=== PATIENT | female | born 1985 | race Caucasian/White ===

== ENCOUNTER 2023-11-25 09:27 | Emergency (ER) | payer SELFPAY ==
--- NOTE | 2023-11-25 09:43 | ED.DENTAL ---
HPI - Dental/Oral General Chief complaint: Dental/Oral Stated complaint: Rt Mouth Pain Time Seen by Provider: 11/25/23 09:42 Source: patient Mode of arrival: ambulatory Limitations: no limitations History of Present Illness HPI Narrative: Patient is a 37-year-old female that presents with 3 days of right upper dental pain. Patient states she has not been to a dentist since high school. Reports injury to tooth a year ago and has only worsened. Patient denies taking any Tylenol or ibuprofen for pain. Did take Flexeril this morning. Patient denies any better taste in mouth or inability to eat. Patient also has history of Lyme disease and mono that she is currently following with PCP. Patient states her heart rate is always elevated. Related Data Allergies Allergy/AdvReac Type Severity Reaction Status Date / Time No Known Allergies Allergy Verified 11/25/23 09:50 Review of Systems Review of Systems: All systems reviewed & are unremarkable except as noted in HPI and below Constitutional: Constitutional: Denies body ache(s), Denies fever(s), Denies headache(s), Denies malaise and Denies weakness Eyes: Eyes: Denies loss of vision ENT: Denies otalgia, Reports facial pain (jaw), Denies headache(s), Denies nasal discharge, Denies sinus pain and Denies sore throat Cardiovascular: Cardiovascular: Denies chest pain, Denies irregular heart rhythm and Denies dyspnea Respiratory: Respiratory: Denies dyspnea Gastrointestinal: Gastrointestinal: Denies abdominal pain, Denies melena, Denies hematochezia, Denies diarrhea, Denies nausea and Denies vomiting Musculoskeletal: Musculoskeletal: Denies back pain, Denies myalgias and Denies arthralgias Integumentary/Breasts: Skin/Breast: Denies pruritus and Denies rash Neurologic: Denies headache(s), Denies loss of vision and Denies weakness Psychiatric: Psychiatric: Reports no additional psychiatric complaints PMFSH Comments At time of signature, agree with nursing past medical, surgical, social and family history. There is no relevant family history pertinent to the presenting complaint. Exam Const: General: cooperative, healthy appearing, comfortable, no acute distress and well nourished Nutritional Appearance: well nourished Orientation/consciousness: patient oriented x3 Limitations: no limitations HENMT: Head: normal to inspection, normocephalic and atraumatic Ears: hearing grossly normal bilaterally, external ears normal, TM's normal bilaterally and mastoids normal bilaterally Face/Nose/Sinus: Normal external nose present, normal facial exam and face symmetric Face and sinus: normal facial exam and face symmetric Mouth: Yes Normal oral and palatal mucosa present, Yes lip normal, Yes tongue normal, Yes Normal salivary glands and ducts present and Yes moist mucous membranes Teeth and gingiva: caries and poor dentition Teeth image: 1. deterioration to both 1/2 teeth. No drainage noted. Surrounding erythema and swelling to base of teeth Eyes: General: appearance normal, both eyes and all related structures Alignment and Position: alignment normal and position normal Periorbital: periorbital findings normal Eyelids: eyelids normal Pupils: Equal, round and reactive pupils present EOM: EOMs intact bilaterally Neck: Neck: normal visual inspection, full ROM, no lymphadenopathy and supple Chest: Chest palpation & inspection: normal inspection of the chest Resp: Effort & Inspection: normal respiratory effort and able to speak in complete sentences Auscultation: clear to auscultation bilaterally Cardio: Rate: regular rate Rhythm: regular rhythm Heart sounds: S1 normal heart sound present and S2 normal heart sound present GI: Inspection: normal to inspection Skin: General skin exam: normal color and no rashes or lesions noted Neuro: General: patient oriented x3 and moves all extremities Cranial nerves: Yes Equal, round and reactive pupils present Speech: normal speech Ga
[2023-11-25 09:51] VITALS: BP 179/95; PULSE 136; RESP 16; TEMP 37; O2SAT 100
== END 2023-11-25 10:10 | disposition home or self-care (01) ==
PROVIDERS: Emergency Provider Nurse Practitioner Family
DX: K04.7 Periapical abscess without sinus (principal); Z86.16 Personal history of COVID-19
CPT/HCPCS: 99203; G0463

== ENCOUNTER 2024-10-29 11:22 | Observation (INO) | payer MEDICAID, SELFPAY ==
[2024-10-29] VITALS (8 sets, daily range): BP systolic 100–147; BP diastolic 70–94; PULSE 101–112; RESP 12–24; TEMP 36.4; O2SAT 94–100; BMI 31.7
--- NOTE | ~2024-10-29 | XR_ITS ---
CHEST RADIOGRAPH CLINICAL HISTORY: Altered mental status . COMPARISON: None available TECHNIQUE: Single portable view of the chest. FINDINGS The cardiomediastinal silhouette is unremarkable. Increased interstitial markings are identified within the left hemithorax, sparing the right, finding s suggesting mild asymmetric pulmonary vascular congestion, versus early infiltrate. IMPRESSION: Asymmetric pulmonary vascular congestion involving primarily the left hemithorax, without focal infil trate. Reviewed, dictated and finalized at location A. ON TIPPER IMPRESSION: Asymmetric pulmonary vascular congestion involving primarily the left hemithora x, without focal infiltrate.
--- NOTE | ~2024-10-29 | CT_ITS ---
EXAMINATION: CT brain wo con DATE: 10/29/2024 13:06 INDICATION: Altered mental status. TECHNIQUE: Computed tomography (CT) of the head was performed without intravenous contrast. The mA wa s adjusted according to patient size. Iterative reconstruction technique was employed. The dose-lengt h product was 605.33 mGy-cm. COMPARISON: None FINDINGS: There is no intracranial hemorrhage, acute infarction, or abnormal intracranial mass lesion . The ventricles are normal in size. The paranasal sinuses are clear. The orbits are normal. The mast oid air cells are normal. IMPRESSION: 1. Normal brain. Reviewed, dictated and finalized at location A. INTMENT SCHEDULER IMPRESSION: 1. Normal brain.
--- NOTE | 2024-10-29 11:38 | ECG_ITS ---
Test Date: 2024-10-29 11:33:36 Measurements Intervals [place] Rate: 104 P: 48 NV: 160 QRS: 21 QRSD: 85 T: 95 QT: 349 QTc: 460 Interpretive Statements SINUS TACHYCARDIA NONSPECIFIC ST & T-WAVE ABNORMALITY- ANTEROLAT/HIGH LAT LEADS BORDERLINE ECG No previous ECG available for comparison Electronically Signed On 10-29-2024 11:53:42 [employer] by Brian Coleman D.O.
--- NOTE | 2024-10-29 11:57 | PC.NURSE ---
call to [place] poison control 4hr peak only supportive care required
[2024-10-29 12:13] LABS: BEDSIDEPREGUCG Negative (Negative)
[2024-10-29 12:19] LABS: Add Urine Microscopic? YES; Appearance Urine Clear (Clear); Bacteria Urine None Seen /hpf; Bilirubin Urine Negative (Negative); Blood Urine Negative (Negative); Color Urine Dark Yellow (Yellow); Glucose Urine UA Negative (Negative); Ketones Urine Negative (Negative); Leukocyte Esterase Ur Negative LEU/UL (Negative); Nitrate Urine Negative (Negative); Non Pathogenic Casts 0-2; Protein Urine Trace mg/dL (Negative); RBC Urine 0-2 /hpf (0-2); Specific Grav Ur 1.026 (1.001-1.035); Squamous Epithelial Cell Urine None Seen /hpf (Few); Urobilinogen Urine 0.2 mg/dL (<2.0); WBC Urine 0-5 /hpf (0-3); pH Urine 7.5 (5.0-9.0)
[2024-10-29 12:21] LABS: Acetaminophen < 10 ug/mL (10-30); Ethanol < 10 mg/dL (<10); Salicylate < 1.0 mg/dL (2-20)
[2024-10-29 12:22] LABS: Basophils Percent Auto 0.3 % (0.2-1.2); Hematocrit 38.6 % (37.0-47.0); Hemoglobin 12.5 g/dL (12.0-15.0); Immature Granulocyte Absolute 0.04 K/mm3 (0.00-0.031); Immature Granulocyte Percent A 0.4 % (0-0.5); Lymphocytes Absolute Auto 1.47 K/mm3 (0.9-3.2); Lymphocytes Percent Auto 13.2 % (18.3-44.2); Mean Corpuscular HGB Conc 32.4 g/dl (32-36); Mean Corpuscular Hemoglobin 27.7 pg (26-34); Mean Corpuscular Volume 85.6 fl (80-100); Mean Platelet Volume 9.4 fl (7.4-10.4); Monocytes Absolute Auto 0.4 K/mm3 (0.1-0.6); Monocytes Percent Auto 3.8 % (2.6-8.5); Neutrophils Absolute Auto 9.1 K/mm3 (1.3-6.7); Neutrophils Percent Auto 82.3 % (45.5-73.1); Platelet Count Result 475 k/mm3 (150-375); Red Blood Count 4.51 M/mm3 (4.2-5.4); White Blood Count 11.1 K/mm3 (4.5-10.0)
--- NOTE | 2024-10-29 12:37 | ED_ITS ---
HPI - Altered Mental Status General Chief Complaint: Altered Mental Status Stated Complaint: ams Time Seen by Provider: 10/29/24 11:38 History of Present Illness HPI narrative: Patient reportedly took a dose of horse anti parasitic last night, she has been obsessed about her health and different ways to treated, has tried a lot of holistic treatments including vitamins. Related Data Allergies Allergy/AdvReac Type Severity Reaction Status Date / Time No Known Allergies Allergy Verified 11/25/23 09:50 Review of Systems 2 Review of Systems: ROS unobtainable: Yes unobtainable due to mental status Exam 2 Narrative: EXAMINATION OF ORGAN SYSTEMS/BODY AREAS: Constitutional: Vital signs per nursing GENERAL:[No acute distress, non-toxic appearing.] Lying comfortably in the bed. HEAD: Normal with no signs of head trauma. EYES: PERRL, conjunctiva normal ENT: Hearing grossly intact LUNGS: Slightly tachycardic ABD: [Soft], [nontender to palpation] EXT: No obvious deformity SKIN: [No rashes or lesions.] NEURO: [Eyes closed, but winces and draws away to painful stimulus all 4 extremities.] Course Vital Signs Vital signs: Vital Signs Temperature 97.6 F 10/29/24 11:21 Pulse Rate 105 H 10/29/24 11:21 Respiratory Rate 20 10/29/24 11:21 Pulse Oximetry 96 10/29/24 11:21 Oxygen Delivery Room Air 10/29/24 11:21 Temperature 97.6 F 10/29/24 11:21 Pulse Rate 105 H 10/29/24 12:08 Respiratory Rate 13 10/29/24 12:04 Blood Pressure 124/94 H 10/29/24 12:04 Pulse Oximetry 97 10/29/24 12:04 Oxygen Delivery Room Air 10/29/24 12:04 MDM - Altered Mental Status MDM Narrative Medical decision making narrative: Patient reportedly took a dose of horse anti parasitic last night, she has been obsessed about her health and different ways to treated, has tried a lot of holistic treatments including vitamins. Per parents, asthma going for years, they have had her see multiple neurologists who say that there is nothing wrong with her neurologically, she has notebook with her that is filled with pain and holistic treatments and other medications that she apparently has been taking which include doxycycline, ivermectin, vitamins. Poison Control Center called, she is medically cleared at this time. At this point I do feel she would strongly benefit from a neuro and psych consult. Discussed with neurologist who recommends EEG if she does not come back to baseline, discussed with hospitalist for admission. I will also give a small dose of Ativan in case this is catatonia. Lab Data 10/29/24 11:57 10/29/24 11:57 Labs: Lab Results 10/29/24 10/29/24 Range/Units 11:57 12:04 WBC 11.1 H (4.5-10.0) K/mm3 RBC 4.51 (4.2-5.4) M/mm3 Hgb 12.5 (12.0-15.0) g/dL Hct 38.6 (37.0-47.0) % MCV 85.6 (80-100) fl MCH 27.7 (26-34) pg MCHC 32.4 (32-36) g/dl RDW 13.0 (11.5-14.5) % Plt Count 475 H (150-375) k/mm3 MPV 9.4 (7.4-10.4) fl Immature Gran % (Auto) 0.4 (0-0.5) % Neut % (Auto) 82.3 H (45.5-73.1) % Lymph % (Auto) 13.2 L (18.3-44.2) % Burt % (Auto) 3.8 (2.6-8.5) % Eos % (Auto) 0.0 (0-4.4) % Baso % (Auto) 0.3 (0.2-1.2) % Lymph # (Auto) 1.47 (0.9-3.2) K/mm3 Burt # (Auto) 0.4 (0.1-0.6) K/mm3 Eos # (Auto) 0.0 (0-0.3) K/mm3 Baso # (Auto) 0.0 (0.0-0.1) K/mm3 Abs Immat Gran (auto) 0.04 H (0.00-0.031) K/mm3 Absolute Neuts (auto) 9.1 H (1.3-6.7) K/mm3 Absolute Nucleated RBC 0.000 (0.0-0.012) K/mm3 Nucleated RBC % 0.0 (0.0-0.2) % Sodium 136 L (137-145) mmol/L Potassium 4.0 (3.4-5.0) mmol/L Chloride 104 (98-107) mmol/L Carbon Dioxide 21 L (22-30) mmol/L Anion Gap 11 (4-12) mmol/L BUN 13 (7-17) mg/dL Creatinine 0.47 L (0.7-1.0) mg/dL Estim Creat Clear Calc 170 ml/min Estimated GFR > 60 (59 - ) Glucose 131 H (65-110) mg/dL Calcium 8.8 (8.4-10.2) mg/dL Total Bilirubin 0.5 (0.2-1.3) mg/dL AST 30 (14-36) U/L ALT 39 H (6-35) U/L Alkaline Phosphatase 95 (38-126) U/L Total Protein 7.0 (6.3-8.2) g/dL Albumin 4.1 (3.5-5.1) g/dL TSH 0.928 (0.465-4.680) uIU/mL Urine Color Dark yellow (Yellow) Urine Appearance Clear (Clear) Urine pH 7.5 (5.0-9.0) Ur Specific [place] 1.026 (1.001-1.035) Urine Protein Trace (Negative) mg/dL Urine Glucose (UA) Negative (Negative) mg/dL Urine Ketones Negative (Negative) mg/dL Ur Blood (Man) Negative (Negative) Urine Nitrate Negative (Negative) Urine Bilirubin Negative (Negative) Urine Urobilinogen 0.2 (<2.0) mg/dL Leukocyte Esterase Rfl Negative (Negative) BRANDON/UL Urine RBC 0-2 (0-2) /hpf Urine WBC 0-5 (0-3) /hpf Ur Squamous Epith Cells None seen (Few) /hpf Urine Bacteria None seen /hpf Urine Casts 0-2 POC Urine HCG, Qual Negative (Negative) Salicylates < 1.0 L (2-20) mg/dL Acetaminophen < 10 L (10-30) ug/mL Ethyl Alcohol < 10 (<10) mg/dL Discharge Plan Discharge Clinical Impression: Altered mental status, Anxiety about health Patient Disposition: Still a Patient Condition: Stable Patient Language: Macedonian Prescriptions: No Action amoxicillin-pot clavulanate 875-125 mg tablet 1 tablet PO Q12H 14 Days Qty: 28 0RF Follow-up/Referrals: Yanet Starks [Other]
[2024-10-29 12:44] LABS: Alanine Aminotransferase 39 U/L (6-35); Albumin Level 4.1 g/dL (3.5-5.1); Alkaline Phosphatase 95 U/L (38-126); Anion Gap 11 mmol/L (4-12); Aspartate Amino Transferase 30 U/L (14-36); Bilirubin,Total 0.5 mg/dL (0.2-1.3); Blood Urea Nitrogen 13 mg/dL (7-17); Calcium 8.8 mg/dL (8.4-10.2); Carbon Dioxide 21 mmol/L (22-30); Chloride 104 mmol/L (98-107); Estimated CRCL calculation 170 ml/min; Estimated Glomerular Filt Rate > 60; Glucose 131 mg/dL (65-110); Sodium 136 mmol/L (137-145)
--- OUTSIDE RECORDS SUMMARY | 2024-10-29 12:53 | XMS_ITS | Clinical Summary ---
[facility] [place] Address [address] [place] [address] Phone Care Team Providers Care Counter Checker Name Role Phone Unavailable Primary Care Provider Unavailabl e Allergies Active Allergy Reactions Criticality Noted Date Comments Cefaclor Unknown 09/07/2009 Ekfyvlwnz-Quu-Lx-Acetaminophen Unknown 09/07 Medications B-complex with vitamin C (SUPER B COMPLEX-VITAMIN C ORAL) Active BENFOTIAMINE ORAL Ac tive MAGNESIUM GLYCINATE ORAL Activ e SULBUTIAMINE ORAL Ac tive TAURINE ORAL Active THEANINE ORAL Active Thiamine HCl, Bulk, Powder Active Active Problems Patient Care Coordination No te Formatting of this note migh t be different from the original. 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 Mood disorder Paranoid schizophrenia Depression Encounters Date Type Department Care Team Description 10/09/2024 External Device Data [facility] ABSTRACTION Provider, Abstract 10/09/2024 External Device Data [facility] ABSTRACTION Provider, Abstract from Last 3 Months Family History Medical History Relation Name Comments Breast Cancer Maternal Aunt age 40's Colon Cancer Maternal Grandfather Breast Cancer Maternal Grandmother age 80 's Breast Cancer Other great grand mo ther age unknown Lung Cancer Paternal Grandfather Relation Name Status Comments Maternal Aunt Maternal Grandfather Maternal Grandmother Other Paternal Grandfather Social History Tobacco Use Types Packs/Day Years Used Date Smoking Tobacco: Never Tobacco Cessation:Counseling Given: Not Answered Alcohol Use Standard Drinks/Week Comments Not Currently 0 (1 standard drink = 0.6 oz pur e alcohol) rare Comments No Sex and Gender Information Value Date Recorded Sex Assigned at Not on file Legal 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 Gender Identity Not on file Sexual Orientation Not on file Last Filed Vital Signs Vital Sign Reading Time Taken Comments Blood Pressure 153/102 04/26/2024 4:11 PM CDT Pulse 133 04/26/2024 2:55 PM CDT Temperature 36.6 C (97.8 F) 04/26/2024 2:55 PM CDT Respiratory Rate 16 04/26/2024 2:55 PM CDT Oxygen Saturation 99% 04/26/2024 2:55 PM CDT Inhaled Oxygen Concentration - - Weight 83.9 kg (185 lb) 04/26/2024 2:55 PM CDT Height 172.7 cm (5' 8 ) 04/26/2024 2:55 PM CDT Body Mass Index 28.13 04/26/2024 2:55 PM CDT Plan of Treatment Health Maintenance Due Date Last Done Comments Pre-Diabetes and Diabetes Screening 1987 DTAP/TDAP/TD VACCINES (1 - Tdap) 12/08/2006 HEPATITIS B VACCINES (1 of 3 - 19+ 3-dose series) 12/08/2006 Preventative Visit-Managed Medicaid 12/08/2006 CERVICAL CANCER SCREENING 12/08/2017 INFLUENZA VACCINE (#1) 2024 HPV VACCINES Aged Out No longer eligi ble based on patient's age to complete this topic [place] [id number]
[2024-10-29 13:15] LABS: Thyroid Stimulating Hormone 0.928 uIU/mL (0.465-4.680)
--- NOTE | 2024-10-29 14:07 | PC.NURSE ---
spoke to poison control at this time for an update on the pt. they updated this RN that there is no treatment, all interventions are based on supportive care.
[2024-10-29] MEDS: LORazepam INJ (*CRX) 2 MG/ML VIAL 1 MG IV PUSH (14:19)
[2024-10-29 14:32] LABS: Amphetamine Screen Urine Negative (Negative); Barbiturate Screen Urine Negative (Negative); Benzodiazepines Screen Urine Negative (Negative); Cannabinoid Screen Urine Negative (Negative); Cocaine Screen Urine Negative (Negative); Methadone Screen Urine Negative (Negative); Opiate Screen Urine Negative (Negative); Phencyclidine Screen Urine Negative (Negative)
[2024-10-29] MEDS: LACTATED RINGERS 1,000 ML 999 ML IV CONT (14:49)
--- NOTE | 2024-10-29 15:33 | PC.NURSE ---
pt unwilling to have [facility] lab draw completed. pt reluctant to stay still. ED respiratory unable to attain specimen. changing order to [facility] per EDP Rubia
--- NOTE | 2024-10-29 15:35 | PM.IMHP ---
H&P: HPI History of Present Illness Date/Time: 10/29/24 15:35 Chief Complaint: Altered mental status Narrative: 38-year-old female past medical history of asthma, no other medical diagnosis presents for altered mental status. Per the ED doctor apparently the patient took horse anti paralytics, she believed that she had parasites. She stated that she does a lot of holistic treatments including vitamins. Per the parents she has seen multiple neurologists with no medical diagnosis however she does not believe that they are correct. She keeps a notebook filled with complaints of pain a.m. homeopathic treatments. Apparently she has been taking doxycycline, ivermectin and vitamins. HPI extremely limited due to patient not altered mental status. Workup in the ED was essentially negative, patient is protecting airway, pupils are 6 sluggish, will be drawn to deep stimuli and moves all 4 extremities. Patient apparently buys medications the Internet she would be best served at a tertiary care with a blanket winder operator. [facility] And [facility] called for transfer with bed wait time over week. [facility] will accept patients they do have overnight help desk specialist and she will likely get a bed in 24 hours. Saw patient again to update parents on plan, she is sitting up in bed with her eyes closed asking from milk stating that she has to pee. Patient unable to urinate Matson catheter placed. Review of Systems Review of Systems: ROS unobtainable: Yes unobtainable due to mental status PMFSH Social History Social History Smoking status: Never smoker Alcohol intake: never Substance use: never Spiritual care concerns: No Meds Home Medications and Allergies Home Medications ?Medication ?Instructions ?Recorded ?Confirmed ?Type amoxicillin 875 mg-potassium 1 tablet PO Q12H 14 days #28 tabs 11/25/23 Rx clavulanate 125 mg tablet Allergies Allergy/AdvReac Type Severity Reaction Status Date / Time cefaclor (From Ceclor) AdvReac Intermediate Hives Verified 10/29/24 14:18 Sulfa (Sulfonamide AdvReac Intermediate Hives Verified 10/29/24 14:18 Antibiotics) sulfamethoxazole (From AdvReac Intermediate Hives Verified 10/29/24 14:18 Septra) trimethoprim (From Septra) AdvReac Intermediate Hives Verified 10/29/24 14:18 Vital Signs Vital Signs - 24 hr 10/29/24 11:21 10/29/24 12:04 10/29/24 12:04 Temperature 97.6 F Pulse Rate 105 H 112 H Respiratory Rate 20 13 Blood Pressure 124/94 H Pulse Oximetry 96 97 97 Oxygen Delivery Room Air Room Air 10/29/24 12:08 10/29/24 13:54 Temperature Pulse Rate 105 H 105 H Respiratory Rate 18 Blood Pressure 135/91 H Pulse Oximetry 97 Oxygen Delivery Exam Narrative: General: No acute distress, appears stated age. Protecting airway HEENT: normocephalic, atraumatic. Mucous membranes moist. EOMI, PERRLA, bilateral sclera anicteric, no conjunctival injection. Pupils 6, sluggish, Neck supple without JVD, lymphadenopathy, or bruit. Respiratory: clear to ascultation bilaterally. No rales/rhonic/wheezes. Cardiovascular: Regular rate and rhythm, normal S1-S2 upon ascultation. No murmurs, rubs, or clicks. PMI is nondisplaced, capillary refill less than 3 second. Abdomen: Soft, round, no pulsatile masses, nondistended and nontender. No rebound, no guarding. No CVA tenderness, no hepatosplenomegaly. Bowel sounds present to all four quadrants. No high pitch or tinkling sounds, resonant to percussion. Extremities: No cyanosis, clubbing, or edema present. Pulses are palpable 2/2. Active ROM to all four extremities. Neuro: Withdrawals to painful stimuli, moves all 4 extremities, not following commands or answering questions however she is sitting up and talking Skin: Warm, dry, and intact, without rash, erythema, or lesion. Psych: Unable to assess H&P: Results Labs Labs: Short CBC 10/29/24 Range/Units 11:57 WBC 11.1 H (4.5-10.0) K/mm3 Hgb 12.5 (12.0-15.0) g/dL Hct 38.6 (37.0-47.0) % Plt Count 475 H (150-375) k/mm3 BMP 10/29/24 11:57 Sodium 136 L Potassium 4.0 Chloride 104 Carbon Dioxide 21 L BUN 13 Creatinine 0.47 L Glucose 131 H Calcium 8.8 Liver Function 10/29/24 Range/Units 11:57 Total Bilirubin 0.5 (0.2-1.3) mg/dL AST 30 (14-36) U/L ALT 39 H (6-35) U/L Alkaline Phosphatase 95 (38-126) U/L Albumin 4.1 (3.5-5.1) g/dL Urine 10/29/24 Range/Units 11:57 Urine Color Dark yellow (Yellow) Urine Appearance Clear (Clear) Urine pH 7.5 (5.0-9.0) Ur Specific [place] 1.026 (1.001-1.035) Urine Protein Trace (Negative) mg/dL Urine Glucose (UA) Negative (Negative) mg/dL Assessment and Plan Assessment and plan (1) Altered mental status: Code(s): R41.82 - Altered mental status, unspecified Status: Acute Assessment and Plan: Patient has been taking doxycycline, ivermectin and homeopathic vitamins without a medical diagnosis, she believe she has parasites Likely ivermectin overdose however other homeopathic medications cannot be ruled Neurology consulted Patient not participating care at this time, vital signs are stable, no acute distress Lab work shows leukocytosis of 11.1, glucose of 131, a LT of 39, UA shows dark yellow urine negative for acute infection, salicylates negative, acetaminophen level negative urinary toxicology negative, ethanol negative. Head CT shows normal brain. EKG shows sinus tachycardia. UA pending. EEG pending Chest x-ray pending transfer pending [facility] however the patient is improving and transfer may not be necessary by time bed is available Plan transfer pending [facility] however the patient is improving and transfer may not be necessary by time bed is Quality VTE Prophylaxis VTE prophylaxis: mechanical ordered and pharmacologic ordered Family cannot verify all her medications Includes review of chart, time spent family, consulting teams, transferring hospitals and nursing. Vital signs were reviewed and they are stable. Findings and treatment plan were discussed with the family. Questions were solicited and answered to satisfaction. Care plan was discussed with nursing. Over 35 minutes critical care time Hospitalist MIPS Advance Care Plan I have confirmed that the patient's Advanced Care Plan is present, code status is documented, or surrogate decision maker is listed in patient medical record.: Yes Medication Reconciliation The patient is not eligible for med reconciliation; the patient is in a emergent medical situation where delaying treatment would jeopardize the patients health.: No
[2024-10-29 15:48] LABS: Fractional Inspired Oxygen 21 %; HCO3 VBG 23.1 mEq/l (24.0-30.0); PCO2 VBG 39.2 mmHg (42.0-48.0); PO2 VBG 61.2 mmHg (35.0-45.0); pH VBG 7.388 (7.300-7.400)
[2024-10-29] MEDS: SODIUM CHLORIDE 0.9% IV 1,000 ML 100 ML IV CONT (16:38)
[2024-10-29] MEDS: ENOXAPARIN 40 MG/0.4 ML SYRINGE SUB-Q (16:39)
[2024-10-29] MEDS: SODIUM CHLORIDE 0.9% IV 1,000 ML 999 ML IV CONT ×2 (18:26→18:27)
--- NOTE | 2024-10-29 19:16 | PC.NURSE ---
This RN assumed care of pt @[phone]
--- NOTE | 2024-10-29 22:24 | PC.NURSE ---
This patient, Jennifer Valdivia, was admitted to IMU status, and placed in Intensive Care Unit-2 at 2155. Patient/family oriented to hospital policies and general routines including ID bracelet, bed and alarms, visiting hours, pain management, procedures, bathroom and other care routines, personal items, smoking policy, room service/diet, and visiting hours. Valuables list has been completed. Information on how to activate the Rapid Response Team has been discussed. Patient/Family are encouraged to report perceived risks to care and to ask questions if they do not understand what they are told or what they should do.
[2024-10-30] VITALS (7 sets, daily range): BP systolic 100–137; BP diastolic 65–89; PULSE 96–112; RESP 15–19; TEMP 36.4–36.9; O2SAT 94–98
[2024-10-30] MEDS: SODIUM CHLORIDE 0.9% IV 1,000 ML 100 ML IV CONT ×3 (01:58→20:21)
[2024-10-30 05:14] LABS: Basophils Absolute Auto 0.1 K/mm3 (0.0-0.1); Basophils Percent Auto 0.4 % (0.2-1.2); Eosinophils Absolute Auto 0.1 K/mm3 (0-0.3); Eosinophils Percent Auto 0.5 % (0-4.4); Hematocrit 32.9 % (37.0-47.0); Hemoglobin 10.6 g/dL (12.0-15.0); Immature Granulocyte Absolute 0.04 K/mm3 (0.00-0.031); Immature Granulocyte Percent A 0.3 % (0-0.5); Lymphocytes Percent Auto 29.7 % (18.3-44.2); Mean Corpuscular HGB Conc 32.2 g/dl (32-36); Mean Corpuscular Hemoglobin 27.6 pg (26-34); Mean Corpuscular Volume 85.7 fl (80-100); Mean Platelet Volume 9.6 fl (7.4-10.4); Monocytes Absolute Auto 0.8 K/mm3 (0.1-0.6); Monocytes Percent Auto 6.6 % (2.6-8.5); Neutrophils Absolute Auto 7.4 K/mm3 (1.3-6.7); Neutrophils Percent Auto 62.5 % (45.5-73.1); Platelet Count Result 396 k/mm3 (150-375); Red Blood Count 3.84 M/mm3 (4.2-5.4); Red Cell Distribution Width 13.2 % (11.5-14.5); White Blood Count 11.8 K/mm3 (4.5-10.0)
[2024-10-30 05:39] LABS: Anion Gap 8 mmol/L (4-12); Blood Urea Nitrogen 6 mg/dL (7-17); Calcium 7.9 mg/dL (8.4-10.2); Carbon Dioxide 23 mmol/L (22-30); Chloride 107 mmol/L (98-107); Estimated CRCL calculation 151 ml/min; Estimated Glomerular Filt Rate > 60; Glucose 97 mg/dL (65-110); Potassium 3.5 mmol/L (3.4-5.0); Sodium 138 mmol/L (137-145)
--- NOTE | 2024-10-30 08:54 | WPDNEUROLOGY ---
Neurology EEG Report General Information Date of Study: 10/30/24 DIAGNOSIS Eeg CONDITION OF RECORDING awake, drowsy and sleep. EEG NUMBER 25-25 CLINICAL HISTORY patient reports she cannot remember the last 2 days. Say is she is feeling better but just still not normal. EEG DESCRIPTION Low to medium voltage 6 to 7 hertz per 2nd theta activity seen admixed with intermittent low-voltage 15 to 18 hertz per 2nd beta activity. Good julian posterior gradient noted. Low-voltage beta, theta, and alpha activity seen during sleep evolving into bilateral symmetrical sleep spindles. Hyperventilation not done. Photic stimulation not done. Non paroxysmal. Nonfocal. Nonlateralizing. IMPRESSION No significant abnormalities noted during wakefulness, drowsiness and sleep. Clinical correlation recommended ,patient can have a normal EEG even if she had the generalized seizures but there is no evidence of seizure on this tracing and there is no evidence of postictal state.
--- NOTE | 2024-10-30 09:30 | PC.NURSE ---
When RN explained about lovenox injection, patient informed RN of taking nattokinase at home. patient explained that it is a natural blood thinner; Dr. Vargasly notified of this; received orders to hold the lovenox for now
--- NOTE | 2024-10-30 11:54 | P.CONNEU_ITS ---
Assessment and Plan Assessment and plan (1) Altered mental status: Code(s): R41.82 - Altered mental status, unspecified Status: Acute Plan 1. Multiple medications intake by the patient at home with resultant change in the mental status though at present her neurological examination is grossly nonfocal. Treatment will be continued as such follow and discuss with her further. Consult date: 10/30/24 HPI: Jennifer Valdivia is a 38 year old female admitted to the hospital through the emergency room for the complaints of change in the mental status and with the information that she took a total of 4 holes anti parasitic last night as she had been concerned about her health and has tried multiple different treatments. She is not allergic to any medication. Initial exam in the emergency room revealed her to be tachycardiac unresponsive to verbal commands but withdrawing from the painful stimuli, vital signs were almost normal except pulse rate of 105, CBC was normal BMP was fairly normal complete lab was negative CT scan of the head was negative for the bleed or any space-occupying lesion patient has been continued on the IV fluids. Since admission EEG has been obtained which was personally reviewed and does not reveal any focal abnormality or paroxysmal activity. Review of Systems 2 Review of Systems: All systems reviewed & are unremarkable except as noted in HPI and below PMFSH Social History Social History Smoking status: Never smoker Alcohol intake: never Substance use: never Spiritual care concerns: No Meds Home Medications and Allergies Home Medications ?Medication ?Instructions ?Recorded ?Confirmed ?Type amoxicillin 875 mg-potassium 1 tablet PO Q12H 14 days #28 tabs 11/25/23 10/29/24 Rx clavulanate 125 mg tablet Allergies Allergy/AdvReac Type Severity Reaction Status Date / Time cefaclor (From Ceclor) AdvReac Intermediate Hives Verified 10/29/24 23:14 Sulfa (Sulfonamide AdvReac Intermediate Hives Verified 10/29/24 23:14 Antibiotics) sulfamethoxazole (From AdvReac Intermediate Hives Verified 10/29/24 23:14 Septra) trimethoprim (From Septra) AdvReac Intermediate Hives Verified 10/29/24 23:14 Vital Signs Vital Signs - 24 hr 10/29/24 12:04 10/29/24 12:04 10/29/24 12:08 Temperature Pulse Rate 112 H 105 H Respiratory Rate 13 Blood Pressure 124/94 H Pulse Oximetry 97 97 Oxygen Delivery Room Air 10/29/24 13:54 10/29/24 16:45 10/29/24 18:18 Temperature Pulse Rate 105 H 101 H 108 H Respiratory Rate 18 15 20 Blood Pressure 135/91 H 147/90 H 100/70 Pulse Oximetry 97 98 94 Oxygen Delivery 10/29/24 21:30 10/29/24 22:39 10/30/24 00:00 Temperature 36.4 C L Pulse Rate 111 H 104 H 106 H Respiratory Rate 12 24 H 19 Blood Pressure 105/72 142/93 H 100/65 Pulse Oximetry 100 100 95 Oxygen Delivery 10/30/24 00:00 10/30/24 02:00 10/30/24 04:00 Temperature Pulse Rate 109 H 112 H 98 Respiratory Rate Blood Pressure Pulse Oximetry Oxygen Delivery 10/30/24 04:00 10/30/24 06:00 10/30/24 08:00 Temperature 36.8 C 36.9 C Pulse Rate 103 H 97 103 H Respiratory Rate 18 15 Blood Pressure 133/84 133/86 Pulse Oximetry 94 96 Oxygen Delivery 10/30/24 08:00 10/30/24 08:00 10/30/24 09:07 Temperature Pulse Rate 96 Respiratory Rate Blood Pressure Pulse Oximetry 98 Oxygen Delivery Room Air Room Air Exam 2 Narrative: Exam today revealed her to be awake alert cooperative in no obvious acute distress, laying in bed on the side family happened to be in the room, head normocephalic with no bruit neck supple with no meningeal signs no bruits, heart regular lungs clear neurologically she is awake alert able to follow the verbal commands his speech not dysphasic not dysarthric not dysphonic the cranial examination is normal motor and sensory exam normal reflexes symmetrical plantars downgoing Results Labs 10/30/24 04:32 10/30/24 04:32 Labs: Short CBC 10/29/24 10/30/24 Range/Units 11:57 04:32 WBC 11.1 H 11.8 H (4.5-10.0) K/mm3 Hgb 12.5 10.6 L (12.0-15.0) g/dL Hct 38.6 32.9 L (37.0-47.0) % Plt Count 475 H 396 H (150-375) k/mm3 BMP 10/29/24 10/30/24 11:57 04:32 Sodium 136 L 138 Potassium 4.0 3.5 Chloride 104 107 Carbon Dioxide 21 L 23 BUN 13 6 L D Creatinine 0.47 L 0.52 L Glucose 131 H 97 Calcium 8.8 7.9 L Liver Function 10/29/24 Range/Units 11:57 Total Bilirubin 0.5 (0.2-1.3) mg/dL AST 30 (14-36) U/L ALT 39 H (6-35) U/L Alkaline Phosphatase 95 (38-126) U/L Albumin 4.1 (3.5-5.1) g/dL Urine 10/29/24 Range/Units 11:57 Urine Color Dark yellow (Yellow) Urine Appearance Clear (Clear) Urine pH 7.5 (5.0-9.0) Ur Specific [place] 1.026 (1.001-1.035) Urine Protein Trace (Negative) mg/dL Urine Glucose (UA) Negative (Negative) mg/dL
--- NOTE | 2024-10-30 11:58 | PM.IMPN ---
Progress Note: A&P Assessment and Plan (1) Altered mental status: Code(s): R41.82 - Altered mental status, unspecified Status: Acute Assessment and Plan: Patient has been taking ivermectin, Moxidectin, nattokinase which is and fibrinolytic enzyme. doxycycline, homeopathic vitamins without a medical diagnosis, she believe she has parasites Questionable ivermectin overdose however other homeopathic medications cannot be ruled Appreciate urology evaluation and recommendations, 10/29: EEG did not show any seizure activity, focal abnormality 0 paroxysmal activity. Lab work shows leukocytosis of 11.1, glucose of 131, a LT of 39, UA shows dark yellow urine negative for acute infection, salicylates negative, acetaminophen level negative urinary toxicology negative, ethanol negative. Head CT shows normal brain. EKG shows sinus tachycardia. UA pending. Chest x-ray asymmetric pulmonary vascular congestion, no focal infiltrate Transfer pending [facility] however the patient is improving and transfer may not be necessary by time bed is available Plan transfer pending [facility] however the patient is improving and transfer may not be necessary by time bed is Subjective Date/time seen: 10/30/24 11:58 Interval history: 38-year-old female past medical history of asthma, no other medical diagnosis presents for altered mental status. According to the records patient probably took anti-helminth medications questionable ivermectin, Moxidectin She also takes nattokinase which is and fibrinolytic enzyme. Patient being seen for hospitalist group: - received 3 L IV fluid bolus on admission, remains on maintenance IV fluids, urine output has been adequate, afebrile, hemodynamically stable. Patient was awake, able to answer a few questions. Knows that she is at [facility], otherwise she does not want to answer other questions of orientation. She states to get information call Juwan her fiance at [phone]. Patient refuses Lovenox as she takes nattokinase which is a blood thinner/fibrinolytic enzyme. Denies any shortness of breath, chest pain, abdominal pain at this time Review of Systems Review of Systems: All systems reviewed & are unremarkable except as noted in HPI and below Exam Narrative: General: No acute distress, appears stated age. Protecting airway HEENT: normocephalic, atraumatic. Mucous membranes moist. EOMI, PERRLA, bilateral sclera anicteric, no conjunctival injection. Neck supple without JVD, lymphadenopathy, or bruit. Respiratory: Lungs are clear to auscultation bilaterally, no wheezing, adequate air entry Cardiovascular: Regular rate and rhythm, S1-S2 was normal, intermittent tachycardia on the campus monitor Abdomen: Soft, nontender, nondistended, normoactive bowel sounds. Extremities: No cyanosis, clubbing, or edema present. Pulses are palpable 2/2. Active ROM to all four extremities. Neuro: Patient is awake, alert, able to answer questions intermittently, knows she is at [facility], she does want to answer other orientation question Skin: Warm, dry, and intact, without rash, erythema, or lesion. Psych: Depressed affect Objective Data Vital Signs Vital Signs: Vital Signs - 24 hr 10/29/24 12:04 10/29/24 12:04 10/29/24 12:08 Temperature Pulse Rate 112 H 105 H Respiratory Rate 13 Blood Pressure 124/94 H Pulse Oximetry 97 97 Oxygen Delivery Room Air 10/29/24 13:54 10/29/24 16:45 10/29/24 18:18 Temperature Pulse Rate 105 H 101 H 108 H Respiratory Rate 18 15 20 Blood Pressure 135/91 H 147/90 H 100/70 Pulse Oximetry 97 98 94 Oxygen Delivery 10/29/24 21:30 10/29/24 22:39 10/30/24 00:00 Temperature 97.5 F L Pulse Rate 111 H 104 H 106 H Respiratory Rate 12 24 H 19 Blood Pressure 105/72 142/93 H 100/65 Pulse Oximetry 100 100 95 Oxygen Delivery 10/30/24 00:00 10/30/24 02:00 10/30/24 04:00 Temperature Pulse Rate 109 H 112 H 98 Respiratory Rate Blood Pressure Pulse Oximetry Oxygen Delivery 10/30/24 04:00 10/30/24 06:00 10/30/24 08:00 Temperature 98.2 F 98.4 F Pulse Rate 103 H 97 103 H Respiratory Rate 18 15 Blood Pressure 133/84 133/86 Pulse Oximetry 94 96 Oxygen Delivery 10/30/24 08:00 10/30/24 08:00 10/30/24 09:07 Temperature Pulse Rate 96 Respiratory Rate Blood Pressure Pulse Oximetry 98 Oxygen Delivery Room Air Room Air Intake/Output Intake/Output: Intake & Output 10/27/24 10/28/24 10/29/24 10/30/24 23:59 23:59 23:59 23:59 Intake Total 3000 1190.0 Output Total 150 1600 Balance 2850 -410.0 Meds/Results Medications: Active Medications Generic Name Dose Route Start Last Admin Trade Name Moodyq PRN Reason Stop Dose Admin Enoxaparin Sodium 40 mg 10/29/24 15:45 10/30/24 09:30 Enoxaparin 40 Mg/0.4 Ml Syringe SUB-Q Not Given DAILY LUIGI Sodium Chloride 1,000 mls @ 100 mls/hr 10/29/24 15:45 10/30/24 04:32 Normal Saline Iv IV CONT 100 mls/hr .Q10H LUIGI Infusion Radiology Results: ITS Impressions Head CT 10/29/24 13:07 IMPRESSION: 1. Normal brain. Chest X-Ray 10/29/24 15:57 IMPRESSION: Asymmetric pulmonary vascular congestion involving primarily the left hemithorax, without focal infiltrate. Labs Labs: Laboratory Results - last 24 hr 10/29/24 10/29/24 10/29/24 11:57 12:04 15:45 WBC 11.1 H RBC 4.51 Hgb 12.5 Hct 38.6 MCV 85.6 MCH 27.7 MCHC 32.4 RDW 13.0 Plt Count 475 H MPV 9.4 Immature Gran % (Auto) 0.4 Neut % (Auto) 82.3 H Lymph % (Auto) 13.2 L [place] % (Auto) 3.8 Eos % (Auto) 0.0 Baso % (Auto) 0.3 Lymph # (Auto) 1.47 [place] # (Auto) 0.4 Eos # (Auto) 0.0 Baso # (Auto) 0.0 Abs Immat Gran (auto) 0.04 H Absolute Neuts (auto) 9.1 H Absolute Nucleated RBC 0.000 Nucleated RBC % 0.0 VBG pH 7.388 VBG pCO2 39.2 L VBG pO2 61.2 H VBG HCO3 23.1 L O2 Delivery Device Not Reportable O2 Liters/Min Not Reportable FiO2 21 Sodium 136 L Potassium 4.0 Chloride 104 Carbon Dioxide 21 L Anion Gap 11 BUN 13 Creatinine 0.47 L Estim Creat Clear Calc 170 Estimated GFR > 60 Glucose 131 H Calcium 8.8 Total Bilirubin 0.5 AST 30 ALT 39 H Alkaline Phosphatase 95 Total Protein 7.0 Albumin 4.1 TSH 0.928 Urine Color Dark yellow Urine Appearance Clear Urine pH 7.5 Ur Specific [place] 1.026 Urine Protein Trace Urine Glucose (UA) Negative Urine Ketones Negative Ur Blood (Man) Negative Urine Nitrate Negative Urine Bilirubin Negative Urine Urobilinogen 0.2 Leukocyte Esterase Rfl Negative Urine RBC 0-2 Urine WBC 0-5 Ur Squamous Epith Cells None seen Urine Bacteria None seen Urine Casts 0-2 POC Urine HCG, Qual Negative Salicylates < 1.0 L Urine Opiates Screen Negative Urine Methadone Screen Negative Acetaminophen < 10 L Ur Barbiturates Screen Negative Ur Phencyclidine Scrn Negative Ur Amphetamine Screen Negative U Benzodiazepines Scrn Negative Urine Cocaine Screen Negative U Cannabinoids Screen Negative Ethyl Alcohol < 10 10/30/24 04:32 WBC 11.8 H RBC 3.84 L Hgb 10.6 L Hct 32.9 L MCV 85.7 MCH 27.6 MCHC 32.2 RDW 13.2 Plt Count 396 H MPV 9.6 Immature Gran % (Auto) 0.3 Neut % (Auto) 62.5 Lymph % (Auto) 29.7 [place] % (Auto) 6.6 Eos % (Auto) 0.5 Baso % (Auto) 0.4 Lymph # (Auto) 3.50 H [place] # (Auto) 0.8 H Eos # (Auto) 0.1 Baso # (Auto) 0.1 Abs Immat Gran (auto) 0.04 H Absolute Neuts (auto) 7.4 H Absolute Nucleated RBC 0.000 Nucleated RBC % 0.0 VBG pH VBG pCO2 VBG pO2 VBG HCO3 O2 Delivery Device O2 Liters/Min FiO2 Sodium 138 Potassium 3.5 Chloride 107 Carbon Dioxide 23 Anion Gap 8 BUN 6 L D Creatinine 0.52 L Estim Creat Clear Calc 151 Estimated GFR > 60 Glucose 97 Calcium 7.9 L Total Bilirubin AST ALT Alkaline Phosphatase Total Protein Albumin TSH Urine Color Urine Appearance Urine pH Ur Specific [place] Urine Protein Urine Glucose (UA) Urine Ketones Ur Blood (Man) Urine Nitrate Urine Bilirubin Urine Urobilinogen Leukocyte Esterase Rfl Urine RBC Urine WBC Ur Squamous Epith Cells Urine Bacteria Urine Casts POC Urine HCG, Qual Salicylates Urine Opiates Screen Urine Methadone Screen Acetaminophen Ur Barbiturates Screen Ur Phencyclidine Scrn Ur Amphetamine Screen U Benzodiazepines Scrn Urine Cocaine Screen U Cannabinoids Screen Ethyl Alcohol Quality VTE Prophylaxis VTE prophylaxis: mechanical ordered and pharmacologic ordered
[2024-10-31] VITALS: BP 130/92; PULSE 90; RESP 15; TEMP 36.9; O2SAT 98
[2024-10-31 03:48] LABS: Basophils Absolute Auto 0.1 K/mm3 (0.0-0.1); Basophils Percent Auto 0.5 % (0.2-1.2); Eosinophils Absolute Auto 0.1 K/mm3 (0-0.3); Eosinophils Percent Auto 1.3 % (0-4.4); Hematocrit 36.5 % (37.0-47.0); Hemoglobin 11.8 g/dL (12.0-15.0); Immature Granulocyte Absolute 0.05 K/mm3 (0.00-0.031); Immature Granulocyte Percent A 0.5 % (0-0.5); Lymphocytes Absolute Auto 3.48 K/mm3 (0.9-3.2); Lymphocytes Percent Auto 32.7 % (18.3-44.2); Mean Corpuscular HGB Conc 32.3 g/dl (32-36); Mean Corpuscular Hemoglobin 27.6 pg (26-34); Mean Corpuscular Volume 85.5 fl (80-100); Mean Platelet Volume 9.2 fl (7.4-10.4); Monocytes Absolute Auto 0.8 K/mm3 (0.1-0.6); Monocytes Percent Auto 7.4 % (2.6-8.5); Neutrophils Absolute Auto 6.1 K/mm3 (1.3-6.7); Neutrophils Percent Auto 57.6 % (45.5-73.1); Platelet Count Result 416 k/mm3 (150-375); Red Blood Count 4.27 M/mm3 (4.2-5.4); Red Cell Distribution Width 13.1 % (11.5-14.5); White Blood Count 10.6 K/mm3 (4.5-10.0)
[2024-10-31 03:58] LABS: Alanine Aminotransferase 37 U/L (6-35); Albumin Level 3.6 g/dL (3.5-5.1); Alkaline Phosphatase 84 U/L (38-126); Anion Gap 10 mmol/L (4-12); Aspartate Amino Transferase 44 U/L (14-36); Bilirubin,Total 0.5 mg/dL (0.2-1.3); Blood Urea Nitrogen 7 mg/dL (7-17); Calcium 8.5 mg/dL (8.4-10.2); Carbon Dioxide 21 mmol/L (22-30); Chloride 108 mmol/L (98-107); Estimated CRCL calculation 153 ml/min; Estimated Glomerular Filt Rate > 60; Glucose 90 mg/dL (65-110); Magnesium 2.1 mg/dL (1.6-2.3); Phosphorus 3.1 mg/dL (2.5-4.5); Potassium 3.7 mmol/L (3.4-5.0); Sodium 139 mmol/L (137-145)
[2024-10-31 05:51] LABS: Partial Thromboplastin Time 27.1 Seconds (22.3-36.8)
[2024-10-31] MEDS: SODIUM CHLORIDE 0.9% IV 1,000 ML 100 ML IV CONT (06:30)
[2024-10-31 08:00] VITALS: BP 142/98; PULSE 94; RESP 16; TEMP 36.9; O2SAT 95
--- NOTE | 2024-10-31 11:35 | P.PNIM_ITS ---
Progress Note: A&P Assessment and Plan (1) Altered mental status: Code(s): R41.82 - Altered mental status, unspecified Status: Acute Assessment and Plan: RESOLVED Patient has been taking ivermectin, Moxidectin, nattokinase which is and fibrinolytic enzyme. doxycycline, homeopathic vitamins without a medical diagnosis, she believe she has parasites Questionable ivermectin overdose however other homeopathic medications cannot be ruled Appreciate urology evaluation and recommendations, 10/29: EEG did not show any seizure activity, focal abnormality 0 paroxysmal activity. Lab work shows leukocytosis of 11.1, glucose of 131, a LT of 39, UA shows dark yellow urine negative for acute infection, salicylates negative, acetaminophen level negative urinary toxicology negative, ethanol negative. Head CT shows normal brain. EKG shows sinus tachycardia. UA pending. Chest x-ray asymmetric pulmonary vascular congestion, no focal infiltrate 08/30: Patient is awake, alert, oriented, nonfocal, states she is back to her baseline mentation -she did state that she took Moxidectin, and antihelmintic drug that is used for and, she states that there is some role in humans and she feels that she has worms. -She denies any overdose, suicide attempt, ideation or behavior. Plan Patient likely may be discharged home Subjective Date/time seen: 10/31/24 11:35 Interval history: 38-year-old female past medical history of asthma, no other medical diagnosis presents for altered mental status. According to the records patient probably took anti-helminth medications questionable ivermectin, Moxidectin She also takes nattokinase which is and fibrinolytic enzyme. Patient being seen for hospitalist group: Patient seen and examined this morning, is awake, alert, oriented, pleasant female currently in no acute distress. States she took some Moxidectin, and anti helminth medication which she takes for worms. She denies any overdose or suicidal attempt/ideation/behavior. Afebrile, hemodynamically stable, adequate urine output Patient denies any tobacco, illicit drug or alcohol use Review of Systems Review of Systems: All systems reviewed & are unremarkable except as noted in HPI and below Exam Narrative: General: Pleasant female, in no acute distress HEENT: Pupils are equal and reactive, sclerae is clear, moist oral mucosa. Neck: Is supple Respiratory: Lungs are clear to auscultation bilaterally, no wheezing, adequate air entry Cardiovascular: Regular rate and rhythm, S1-S2 was normal, Abdomen: Soft, nontender, nondistended, normoactive bowel sounds. Extremities: No cyanosis, clubbing, or edema present. Pulses are palpable 2/2. Active ROM to all four extremities. Neuro: Patient is awake, alert, oriented, able to answer questions, follows simple commands Skin: Warm, dry, and intact, without rash, erythema, or lesion. Psych: Normal mentation and affect Objective Data Vital Signs Vital Signs: Vital Signs - 24 hr 10/30/24 16:00 10/30/24 20:00 10/31/24 00:00 Temperature 98.4 F 98.5 F Pulse Rate 97 90 Respiratory Rate 18 15 Blood Pressure 137/89 130/92 H Pulse Oximetry 97 98 Oxygen Delivery Room Air Intake/Output Intake/Output: Intake & Output 10/28/24 10/29/24 10/30/24 10/31/24 23:59 23:59 23:59 23:59 Intake Total 3000 3008.3 1186.7 Output Total 150 4200 2250 Balance 2850 -1191.7 -1063.3 Meds/Results Medications: Active Medications Generic Name Dose Route Start Last Admin Trade Name Freq PRN Reason Stop Dose Admin Enoxaparin Sodium 40 mg 10/29/24 15:45 10/30/24 09:30 Enoxaparin 40 Mg/0.4 Ml Syringe SUB-Q Not Given DAILY LUIGI Radiology Results: ITS Impressions Head CT 10/29/24 13:07 IMPRESSION: 1. Normal brain. Chest X-Ray 10/29/24 15:57 IMPRESSION: Asymmetric pulmonary vascular congestion involving primarily the left hemithorax, without focal infiltrate. Labs Labs: Laboratory Results - last 24 hr 10/31/24 10/31/24 03:31 03:33 WBC 10.6 H RBC 4.27 Hgb 11.8 L Hct 36.5 L MCV 85.5 MCH 27.6 MCHC 32.3 RDW 13.1 Plt Count 416 H MPV 9.2 Immature Gran % (Auto) 0.5 Neut % (Auto) 57.6 Lymph % (Auto) 32.7 [place] % (Auto) 7.4 Eos % (Auto) 1.3 Baso % (Auto) 0.5 Lymph # (Auto) 3.48 H [place] # (Auto) 0.8 H Eos # (Auto) 0.1 Baso # (Auto) 0.1 Abs Immat Gran (auto) 0.05 H Absolute Neuts (auto) 6.1 Absolute Nucleated RBC 0.000 Nucleated RBC % 0.0 PT 14.0 INR 1.0 APTT 27.1 Sodium 139 Potassium 3.7 Chloride 108 H Carbon Dioxide 21 L Anion Gap 10 BUN 7 Creatinine 0.51 L Estim Creat Clear Calc 153 Estimated GFR > 60 Glucose 90 Calcium 8.5 Phosphorus 3.1 Magnesium 2.1 Total Bilirubin 0.5 AST 44 H ALT 37 H Alkaline Phosphatase 84 Total Protein 7.0 Albumin 3.6 Quality VTE Prophylaxis VTE prophylaxis: mechanical ordered and pharmacologic ordered
--- NOTE | 2024-10-31 13:31 | PM.DS ---
DS: Admitting Diagnosis Discharge Date 10/31/2024 Admitting Diagnosis Altered mental status likely related to medication overdose. Moxidectin (antihelmintic) DS: Discharge Diagnosis Discharge Diagnosis (1) Altered mental status: Code(s): R41.82 - Altered mental status, unspecified Status: Acute Assessment and Plan: RESOLVED Patient has been taking ivermectin, Moxidectin, nattokinase which is and fibrinolytic enzyme. doxycycline, homeopathic vitamins without a medical diagnosis, she believe she has parasites Questionable ivermectin overdose however other homeopathic medications cannot be ruled Appreciate urology evaluation and recommendations, 10/29: EEG did not show any seizure activity, focal abnormality 0 paroxysmal activity. Lab work shows leukocytosis of 11.1, glucose of 131, a LT of 39, UA shows dark yellow urine negative for acute infection, salicylates negative, acetaminophen level negative urinary toxicology negative, ethanol negative. Head CT shows normal brain. EKG shows sinus tachycardia. UA pending. Chest x-ray asymmetric pulmonary vascular congestion, no focal infiltrate 08/30: Patient is awake, alert, oriented, nonfocal, states she is back to her baseline mentation -she did state that she took Moxidectin, and antihelmintic drug that is used for and, she states that there is some role in humans and she feels that she has worms. -She denies any overdose, suicide attempt, ideation or behavior. Plan : RESOLVED Patient has been taking ivermectin, Moxidectin, nattokinase which is and fibrinolytic enzyme. doxycycline, homeopathic vitamins without a medical diagnosis, she believe she has parasites Questionable ivermectin overdose however other homeopathic medications cannot be ruled Appreciate urology evaluation and recommendations, 10/29: EEG did not show any seizure activity, focal abnormality 0 paroxysmal activity. Lab work shows leukocytosis of 11.1, glucose of 131, a LT of 39, UA shows dark yellow urine negative for acute infection, salicylates negative, acetaminophen level negative urinary toxicology negative, ethanol negative. Head CT shows normal brain. EKG shows sinus tachycardia. UA pending. Chest x-ray asymmetric pulmonary vascular congestion, no focal infiltrate 08/30: Patient is awake, alert, oriented, nonfocal, states she is back to her baseline mentation -she did state that she took Moxidectin, and antihelmintic drug that is used for and, she states that there is some role in humans and she feels that she has worms. -She denies any overdose, suicide attempt, ideation or behavior. DS: Summary Hospital Course Reason for hospitalization: Altered mental status likely related to medication overdose. Moxidectin (antihelmintic) Hospital Course: 38-year-old female with no past medical history except asthma presented the ED on 10/29/2024 after being found unresponsive, apparently patient had taken anti parasitic medications, possible ivermectin Vs moxidectin. Patient does holistic medications and obtains her meds from online. She has a notebook failed with complains of pain and homeopathic treatments. She has apparently being taken doxycycline and vitamins. She has seen 7 neurologists in the past for her pain. In the ER lab work showed leukocytosis of 11.1, glucose of 131, urine was negative for acute infection. Urine tox screen was negative for salicylates, acetaminophen, illicit drugs, negative alcohol level. CT scan of the brain was normal, patient was given IV fluids and started on maintenance IV fluids and transferred to intermediate Unit status with placed in the ICU. Hemodynamically remains stable, patient had adequate urine output. On 08/30/2025 patient is fully awake, alert, oriented, pleasant female, in no acute distress. She stated that she took Moxidectin. If she stated she did not overdose, no suicidal attempt or ideation. Patient denies any alcohol, illicit drug or tobacco use. Status at Discharge Cognitive/behavioral status at discharge: Stable Functional status at discharge: independent ambulation Time Spent with Patient Time attestation: Total time spent providing and/or coordinating discharge services: Time spent: Less than 30 minutes Exam Narrative: General: Pleasant female, in no acute distress HEENT: Pupils are equal and reactive, sclerae is clear, moist oral mucosa. Neck: Is supple Respiratory: Lungs are clear to auscultation bilaterally, no wheezing, adequate air entry Cardiovascular: Regular rate and rhythm, S1-S2 was normal, Abdomen: Soft, nontender, nondistended, normoactive bowel sounds. Extremities: No cyanosis, clubbing, or edema present. Pulses are palpable 2/2. Active ROM to all four extremities. Neuro: Patient is awake, alert, oriented, able to answer questions, follows simple commands Skin: Warm, dry, and intact, without rash, erythema, or lesion. Psych: Normal mentation and affect DS: Data Data Completed and Pending Labs on day of discharge: Labs from last 24 hours 10/31/24 10/31/24 03:33 03:31 WBC 10.6 H RBC 4.27 Hgb 11.8 L Hct 36.5 L MCV 85.5 MCH 27.6 MCHC 32.3 RDW 13.1 Plt Count 416 H MPV 9.2 Immature Gran % (Auto) 0.5 Neut % (Auto) 57.6 Lymph % (Auto) 32.7 [place] % (Auto) 7.4 Eos % (Auto) 1.3 Baso % (Auto) 0.5 Lymph # (Auto) 3.48 H [place] # (Auto) 0.8 H Eos # (Auto) 0.1 Baso # (Auto) 0.1 Abs Immat Gran (auto) 0.05 H Absolute Neuts (auto) 6.1 Absolute Nucleated RBC 0.000 Nucleated RBC % 0.0 PT 14.0 INR 1.0 APTT 27.1 Sodium 139 Potassium 3.7 Chloride 108 H Carbon Dioxide 21 L Anion Gap 10 BUN 7 Creatinine 0.51 L Estim Creat Clear Calc 153 Estimated GFR > 60 Glucose 90 Calcium 8.5 Phosphorus 3.1 Magnesium 2.1 Total Bilirubin 0.5 AST 44 H ALT 37 H Alkaline Phosphatase 84 Total Protein 7.0 Albumin 3.6 Discharge Plan Discharge Attending physician on discharge: Dominic Mcgowan Consulting providers: Jason Mann Discharging Clinician: Dominic Mcgowan Anticipated Discharge Date/Time: 10/31/24 13:28 Patient Disposition: Home, Self-Care Activity: january shower Diet: as tolerated Discharge Instructions: Follow with primary care doctor and a psychiatrist Patient Language: [place] Stand Alone Forms: General Discharge Information Follow-up/Referrals: Yanet Starks [Other] Discharge Medications: Discontinued amoxicillin-pot clavulanate 875-125 mg tablet 1 tablet PO Q12H 14 Days Qty: 28 0RF Date of admission: 10/29/24 13:31 Primary Care Provider: Yanet Starks Admitting Provider: Kem Sousa Attending physician on admission: Kem Sousa Condition: Stable Care Plan Goals: Avoid De-worming medications, unless prescribed by primary care doctor. Quality VTE Prophylaxis VTE prophylaxis: mechanical ordered and pharmacologic ordered
== END 2024-10-31 14:00 | disposition home or self-care (01) ==
LOC: ANHED 13:36 → ANH3MEDSUR 14:26 → ANHICU 10-30 02:50 → ANH3MEDSUR 11-01 07:21 → ANHICU 11-01 07:21
PROVIDERS: Nurse Practitioner Gerontology; Admitting Provider Internal Medicine; Emergency Provider Emergency Medicine; Visit Provider Internal Medicine
DX: R41.82 Altered mental status, unspecified (principal); F41.9 Anxiety disorder, unspecified; J45.909 Unspecified asthma, uncomplicated; R39.198 Other difficulties with micturition; Z88.1 Allergy status to other antibiotic agents; Z88.2 Allergy status to sulfonamides; Z79.899 Other long term (current) drug therapy
CPT/HCPCS: 36415; 70450; 71045; 80048; 80053; 80143; 80179; 80307; 81001; 81025; 82077; 82803; 83735; 84100; 84443; 85025; 85610; 85730; 93005; 95816; 96361; 96372; 96374; 99285; G0378; G0379; J1650; J2060; J7030; J7120